=== PATIENT | female | born 1970 ===

== ENCOUNTER 2023-05-18 12:34 | Emergency (ER) | payer OTHER, SELFPAY ==
--- NOTE | ~2023-05-18 | CT_ITS ---
EXAMINATION: CT ANGIOGRAM NECK WITH CONTRAST CT ANGIOGRAM BRAIN WITH CONTRAST CLINICAL INFORMATION: Left-sided weakness. COMPARISON: None. TECHNIQUE: Test bolus sequences followed by intravenous administration 100 mL of Omnipaque 350. Helical imaging was performed in the axial plane from the thoracic inlet to the skull vertex. Delayed postcontrast imaging of the head was also performed. The data was processed at the medical laboratory technologist workstation for generation of MIP sequences. Angled MIPs and volume rendered reformatted images were also generated at an offline 3D workstation. Stenoses are assessed in accordance with NASCET criteria unless otherwise indicated. This CT examination was performed using dose optimization techniques as appropriate, variously including the following: *Automated exposure control *Adjustment of mA and/or kV according to patient size (this includes techniques or standardized protocols for targeted exams where dose is matched to indication/reason for exam; i.e. extremities or head) *Use of iterative reconstruction technique DLP: 6 mGy-cm FINDINGS: Head CT: There is no intracranial hemorrhage, large acute infarction, or mass lesion. The ventricles are normal in size and configuration without evidence of hydrocephalus. There is no abnormal enhancement. The dural venous sinuses are normally opacified. The visualized paranasal sinuses and mastoid air cells are clear. Neck CTA: There is a normal aortic arch with no significant stenosis of the great vessel origins. The common and internal carotid arteries are normal in course and caliber. Both vertebral arteries are widely patent throughout their extracranial cervical course. Head CTA: No intracranial aneurysm is seen. The intracranial internal carotid arteries appear normal. The anterior cerebral artery, anterior communicating artery, and middle cerebral arteries appear normal. The intradural vertebral arteries and basilar artery appear normal. The posterior cerebral arteries appear normal. Non-vascular findings: The cervical soft tissues are within normal limits. The lung apices are clear. The spine is intact without significant degenerative change. CT/CT angio head neck IMPRESSION: CT HEAD: No intracranial hemorrhage or large acute infarction. CTA NECK: No hemodynamically significant stenosis in the major arteries of the neck. CTA HEAD: No large vessel occlusion or significant stenosis within the intracranial circulation. This critical result was discussed with Faby MUSTAFA on 05/18/2023 3:15 PM, and it was ascertained that the content and urgency of the report was understood at the time of direct communication.
--- NOTE | 2023-05-18 12:36 | ECG_ITS ---
Test Reason : CHEST PAIN Blood Pressure : / mmHG Vent. Rate : 081 BPM Atrial Rate : 081 BPM P-R Int : 152 ms QRS Dur : 074 ms QT Int : 380 ms P-R-T Axes : 061 040 016 degrees QTc Int : 441 ms Normal sinus rhythm Nonspecific ST and T wave abnormality Borderline ECG No previous ECGs available Referred By: Generic ED Physician Electronically Signed By:MAXINE AQUINO
[2023-05-18 12:42] VITALS: BP 133/83; PULSE 93; RESP 16; TEMP 36.1; O2SAT 100; BMI 20.1
--- NOTE | 2023-05-18 12:45 | ED_ITS ---
HPI - General Adult General Chief complaint: General Medical Stated complaint: headache, chest pain Time Seen by Provider: 05/18/23 13:05 Source: patient and family Mode of arrival: ambulatory Limitations: no limitations History of Present Illness HPI narrative: 52 y/o female with history of migraine headaches, HTN, history of TIA who presents to the ER for evaluation of a migraine head that started yesterday. She states the headache is 10/10 and she had no improvement with taking her usual Topamax and PRN Fiorcet at homes so she came to the ER for further evaluation. She reports the headache is generalized and involves her entire head. It is associated with nausea. She also reports generalized fatigue, chest discomfort across her entire chest, body aches, and increased urinary frequency for the last 2 days. No abdominal pain, vomiting or diarrhea. No SOB or difficulty breathing. Patient ambulated to the treatment room and upon examination patient reported new onset of left side of her body feeling heavy that started in the hour wait she was in the waiting room. She reports weakness in her left arm and leg. No numbness or tingling. Her daughter reports a similar presentation in the past for which she was admitted to [facility] for possible TIA. She has been on Plavix for this for the last couple of years. She is unsure if head imaging showed any abnormalities in the past. MD complaint: migraine headache Onset (ago): day(s) (1) Location: head, face, left, upper extremity and lower extremity Severity: severe Severity scale (1-10): 10 Quality: stabbing and aching Pain Consistency: constant Relieving factors: none Exacerbating factors: none Associated symptoms: malaise and weakness Treatments prior to arrival: other (fiorcet) Related Data Allergies Allergy/AdvReac Type Severity Reaction Status Date / Time aspirin [ASA] Allergy Unknown Verified 05/18/23 12:48 Review of Systems Review of Systems: Yes all other systems are reviewed and are negative PMFSH Social History Social History Advance Directives: Yes Advance Directives on File: No Physical Exam ED Vital Signs: Vital Signs - 24 hr 05/18/23 12:42 05/18/23 13:56 05/18/23 15:15 Temperature 96.9 F 98 F 98.9 F Pulse Rate 93 85 85 Respiratory Rate 16 17 8 L Blood Pressure 133/83 113/70 111/71 Pulse Oximetry 100 100 100 Oxygen Delivery Method Room Air Room Air BMI result Body Mass Index 20.1 Appearance: Alert. Oriented X3. No acute distress. Head: normocephalic, atraumatic. Eyes: Pupils equal, round and reactive to light. ENT: Pharynx normal. No tonsillar swelling or exudate. Neck: Normal inspection. Neck supple. CVS: Normal heart rate and rhythm. Pulses normal. Respiratory: No respiratory distress. Breath sounds normal. Abdomen: Soft and nontender. +BS x4 Skin: Skin warm and dry. Normal skin color. Normal skin turgor. No rashes. Extremities: No lower extremity edema. No joint swelling. Neuro/psych: Oriented X 3. There is 4/5 strength of both the LUE and LLL. 5/5 strength of the RUE and RLE. No sensory deficit. CN II-XII intact. Normal speech and cognition. No facial droop. No pronator drift. Steady gait observed. NIH Stroke Scale Internal: Initial- Upon Arrival Time: 13:23 Level of Consciousness: Alert Level of Consciousness Questions: Answers both questions correctly Level of Consciousness Commands: Performs both tasks correctly Best Gaze: Normal Visual: No visual loss Facial Palsy: Normal Motor Arm (Right): No drift Motor Arm (Left): Some effort against gravity Motor Leg (Right): No drift Motor Leg (Left): Some effort against gravity Limb Ataxia: Absent Sensory: Normal Best Language: No aphasia Dysarthia: Normal Extinction and Inattention: No abnormality Score: 4 Course Course Course Narrative: This is an RME: Additional HPI, ROS, PE not included below will be deferred to primary provider. 52-year-old female history of migraines presenting with multiple complaints including headache, chest pain, fatigue, malaise, urinary frequency and urgency for the past 2 days. Patient has history of migraines tells me it feels similar took some medication for at home with little to no relief, does not recall what she took. Pain > 10/10 Physical exam benign. Neuro nonfocal. Ambulating with steady gait normal coordination. Plan labs, imaging, urine. Reevaluation(s) Reevaluation #1: Spoke with Dr. Anderson from Neurology about the case - he is recommending treating the migraine headache. She is already on Plavix. She is not a candidate for tPA. Her symptoms are most consistent with complex migraine. Case also c/w Dr. Garcia who evaluated the patient - recommend treatment for complex migraine. Getting CTA to r/o LVO Time: 13:48 Medications Administered Discontinued Medications Generic Name Dose Route Start Last Admin Trade Name Titi PRN Reason Stop Dose Admin Dexamethasone Sodium Phosphate 8 mg 05/18/23 13:38 05/18/23 13:52 Dexamethasone Sod Phosphate 4 Mg/Ml Vial IVPUSH 05/18/23 13:39 8 mg ONCE ONE Administration Magnesium Sulfate 2 gm in 50 mls @ 25 mls/hr 05/18/23 13:39 05/18/23 14:17 Magnesium Sulfate/H2o IV 05/18/23 15:38 Infused ONCE ONE Infusion Iohexol 100 ml 05/18/23 14:24 05/18/23 14:24 Iohexol 350 Mg/Ml 100 Ml Infus..Btl IV 05/18/23 14:25 70 ml ONCE ONE Administration Medical Decision Making Medical Decision Making MDM Narrative: 52 yo female with history of migraine headaches, ?TIA on Plavix, HTN who presents to the ER for evaluation of 10/10 migraine headache since yesterday along with new onset left sided weakness that started within the last hour. Case d/w Dr. Anderson who recommends treating migraine headache. Records from [facility] were reviewed - she presented to [facility] in December of this year with very similar presentation including the left sided weakness which was most likely due to complex migraine and NOT TIA. Case d/w Dr. Garcia - patient was treated with Mg++ 2gm, and 8 mg IV decadron with significant improvement in her symptoms. CTA head/neck normal. Comfortable w/ discharge home with close follow up with her Neurologist. Differential Diagnosis Differential Diagnoses: The differential diagnosis associated with the presentation includes complex migraine headache, acute stroke, TIA, malingering Admission/Observation Consideration of admission/observation: Escalation of care including admission/observation considered possible TIA, considered admission Consult Healthcare Provider Management of the patient was discussed with: Electroencephalograph Technologist Dr. Anderson Lab Data [facility] Lab Attestation statement: I reviewed the patient's lab results. normal CBC 05/18/23 13:40 05/18/23 13:40 Labs: Lab Results 05/18/23 05/18/23 05/18/23 Range/Units 13:30 13:32 13:39 WBC (4.8-10.8) X10*3/uL RBC (4.20-5.50) X10*6/uL Hgb (12.0-16.0) g/dl Hct (37.0-47.0) % MCV (80.0-98.0) fL MCH (27.0-33.0) pg MCHC (31.0-35.0) g/dl RDW (11.0-16.0) % Plt Count (160-400) X10*3/uL MPV (9.4-12.3) fL Immature Gran % (Auto) (0.0-0.4) % Neut % (Auto) (45-73) % Lymph % (Auto) (20-40) % Gates % (Auto) (2-11) % Eos % (Auto) (0-4) % Baso % (Auto) (0-2) % Lymph # (Auto) (1.2-4.9) X10*3/uL Gates # (Auto) (0.1-1.2) X10*3/uL Eos # (Auto) (0.0-0.4) X10*3/uL Baso # (Auto) (0.0-0.2) X10*3/uL Abs Immat Gran (auto) (0.00-0.03) X10*3/uL Absolute Neuts (auto) (2.0-8.3) x10*3/uL Absolute Nucleated RBC (0.0-0.012) X10*3/uL Nucleated RBC % (auto) (0.0-0.2) /100WBC Smear Tech's Comments PT 11.5 (10.0-13.1) SEC Whole Blood PT 12.4 (11.1-13.5) sec INR 1.0 (0.9-1.1) Whole Blood INR 1.0 (0.9-1.1) APTT 32.6 (26.0-36.4) SEC Sodium (135-145) mmol/L Potassium (3.3-5.1) mmol/L Chloride (96-108) mmol/L Carbon Dioxide (22-29) mmol/L Anion Gap (12-20) BUN (9-16) mg/dL Creatinine (0.5-1.4) mg/dL Estim Creat Clear Calc Estimated GFR POC Glucose 93 (60-115) mg/dL Random Glucose (60-115) mg/dL Calcium (8.4-10.2) mg/dL Magnesium (1.6-2.6) mg/dL Total Bilirubin (0.0-1.0) mg/dL AST (5-31) U/L ALT (0-31) U/L Alkaline Phosphatase (39-117) U/L Troponin I High Sens (<3.5-17.0) ng/L Total Protein (6.5-8.0) g/dL Albumin (3.5-5.0) g/dL COVID-19 (AMY) (Negative) COVID-19 Clin Com 05/18/23 05/18/23 05/18/23 Range/Units 13:40 13:40 13:40 WBC 6.8 (4.8-10.8) X10*3/uL RBC 4.28 (4.20-5.50) X10*6/uL Hgb 13.5 (12.0-16.0) g/dl Hct 42.1 (37.0-47.0) % MCV 98.4 H (80.0-98.0) fL MCH 31.5 (27.0-33.0) pg MCHC 32.1 (31.0-35.0) g/dl RDW 11.8 (11.0-16.0) % Plt Count 212 (160-400) X10*3/uL MPV 11.1 (9.4-12.3) fL Immature Gran % (Auto) 0.4 (0.0-0.4) % Neut % (Auto) 90.4 H (45-73) % Lymph % (Auto) 5.9 L (20-40) % Gates % (Auto) 2.8 (2-11) % Eos % (Auto) 0.1 (0-4) % Baso % (Auto) 0.4 (0-2) % Lymph # (Auto) 0.4 L (1.2-4.9) X10*3/uL Gates # (Auto) 0.2 (0.1-1.2) X10*3/uL Eos # (Auto) 0.0 (0.0-0.4) X10*3/uL Baso # (Auto) 0.0 (0.0-0.2) X10*3/uL Abs Immat Gran (auto) 0.03 (0.00-0.03) X10*3/uL Absolute Neuts (auto) 6.2 (2.0-8.3) x10*3/uL Absolute Nucleated RBC 0.000 (0.0-0.012) X10*3/uL Nucleated RBC % (auto) 0.0 (0.0-0.2) /100WBC Smear Tech's Comments VERIFIED PT (10.0-13.1) SEC Whole Blood PT (11.1-13.5) sec INR (0.9-1.1) Whole Blood INR (0.9-1.1) APTT (26.0-36.4) SEC Sodium 142 (135-145) mmol/L Potassium 4.2 (3.3-5.1) mmol/L Chloride 113 H (96-108) mmol/L Carbon Dioxide 20 L (22-29) mmol/L Anion Gap 13 (12-20) BUN 13 (9-16) mg/dL Creatinine 0.92 (0.5-1.4) mg/dL Estim Creat Clear Calc 55.0 Estimated GFR > 60 POC Glucose (60-115) mg/dL Random Glucose 106 (60-115) mg/dL Calcium 10.0 (8.4-10.2) mg/dL Magnesium 2.2 (1.6-2.6) mg/dL Total Bilirubin 0.7 (0.0-1.0) mg/dL AST 21 (5-31) U/L ALT 20 (0-31) U/L Alkaline Phosphatase 79 (39-117) U/L Troponin I High Sens < 2.7 (<3.5-17.0) ng/L Total Protein 7.3 (6.5-8.0) g/dL Albumin 4.6 (3.5-5.0) g/dL COVID-19 (AMY) (Negative) COVID-19 Clin Com 05/18/23 Range/Units 13:40 WBC (4.8-10.8) X10*3/uL RBC (4.20-5.50) X10*6/uL Hgb (12.0-16.0) g/dl Hct (37.0-47.0) % MCV (80.0-98.0) fL MCH (27.0-33.0) pg MCHC (31.0-35.0) g/dl RDW (11.0-16.0) % Plt Count (160-400) X10*3/uL MPV (9.4-12.3) fL Immature Gran % (Auto) (0.0-0.4) % Neut % (Auto) (45-73) % Lymph % (Auto) (20-40) % Gates % (Auto) (2-11) % Eos % (Auto) (0-4) % Baso % (Auto) (0-2) % Lymph # (Auto) (1.2-4.9) X10*3/uL Gates # (Auto) (0.1-1.2) X10*3/uL Eos # (Auto) (0.0-0.4) X10*3/uL Baso # (Auto) (0.0-0.2) X10*3/uL Abs Immat Gran (auto) (0.00-0.03) X10*3/uL Absolute Neuts (auto) (2.0-8.3) x10*3/uL Absolute Nucleated RBC (0.0-0.012) X10*3/uL Nucleated RBC % (auto) (0.0-0.2) /100WBC Smear Tech's Comments PT (10.0-13.1) SEC Whole Blood PT (11.1-13.5) sec INR (0.9-1.1) Whole Blood INR (0.9-1.1) APTT (26.0-36.4) SEC Sodium (135-145) mmol/L Potassium (3.3-5.1) mmol/L Chloride (96-108) mmol/L Carbon Dioxide (22-29) mmol/L Anion Gap (12-20) BUN (9-16) mg/dL Creatinine (0.5-1.4) mg/dL Estim Creat Clear Calc Estimated GFR POC Glucose (60-115) mg/dL Random Glucose (60-115) mg/dL Calcium (8.4-10.2) mg/dL Magnesium (1.6-2.6) mg/dL Total Bilirubin (0.0-1.0) mg/dL AST (5-31) U/L ALT (0-31) U/L Alkaline Phosphatase (39-117) U/L Troponin I High Sens (<3.5-17.0) ng/L Total Protein (6.5-8.0) g/dL Albumin (3.5-5.0) g/dL COVID-19 (AMY) Negative (Negative) COVID-19 Clin Com See Note Independent Interpretation I performed an independent interpretation of an: EKG and CT Scan Interpretation: CTA reviewed - no significant bleed or occlusion appreciated EKG normal sinus rhythm, HR 81 bpm, normal MS interval, normal QTc Radiology Impression Discussion of test interpretation with radiology: I have reviewed the radiologist's reading. Radiologist Impression: CT/CT angio head neck IMPRESSION: CT HEAD: No intracranial hemorrhage or large acute infarction. ? CTA NECK: No hemodynamically significant stenosis in the major arteries of the neck. ? CTA HEAD: No large vessel occlusion or significant stenosis within the intracranial circulatio Independent Historian Clinical information obtained from an independent historian. History obtained from or confirmed by: Other (adult daughter at the bedside) External Record Review External record reviewed: Inpatient record and Outside ED record Prescription Management I considered prescription management with: Pain Medication Chronic Conditions Patient?s care impacted by: Hypertension Critical Care Time Critical Care Time Critical Care Time: Yes Total Critical Care Time: 44 Attestation: I have personally provided critical care time exclusive of time spent on separately billable procedures. Time includes review of lab data, radiology results, discussion with consultants, and monitoring for potential decompensation. Intervention performed as documented. Discharge Plan Discharge Clinical Impression: Migraine headache Patient Disposition: Home, Self-Care Instructions: Migraine Headache (ED) Additional Instructions: Your CT scan today was normal. Your EKG was normal. Your urine test was normal. Your lab work was unremarkable. You tested negative for COVID. Follow up with your doctor If you develop new or worsening symptoms call 911 or come back to the ER for further evaluation. Paulino tomograf?a computarizada de hoy fue normal. Paulino electrocardiograma fue normal. Paulino an?lisis de orina fue normal. Paulino trabajo de laboratorio fue normal. Usted elías negativo para COVID. Seguimiento con paulino m?dico Si desarrolla s?ntomas nuevos o que empeoran, llame al 911 o regrese a la lucille de emergencias para joana evaluaci?n adicional.
[2023-05-18 13:39] LABS: Glucose, Whole Blood 93 mg/dL (60-115)
--- NOTE | 2023-05-18 13:44 | PC.NURSE ---
pt reports migraine with sudden onset weakness, neuro intact, 20G IV placed right AC, labs drawn, stroke protocol completed by tech, playground monitor applied - NSR, CT pending lab results.
[2023-05-18 13:46] LABS: Basophils Percent Auto 0.4 % (0-2); Eosinophils Percent Auto 0.1 % (0-4); Hematocrit 42.1 % (37.0-47.0); Hemoglobin 13.5 g/dl (12.0-16.0); Imm Gran Abs Auto 0.03 X10*3/uL (0.00-0.03); Imm Gran Pct Auto 0.4 % (0.0-0.4); Lymphocytes Absolute Auto 0.4 X10*3/uL (1.2-4.9); Lymphocytes Percent Auto 5.9 % (20-40); MANUAL DIFF FLAG SCAN; Mean Corpuscular HGB Conc 32.1 g/dl (31.0-35.0); Mean Corpuscular Hemoglobin 31.5 pg (27.0-33.0); Mean Corpuscular Volume 98.4 fL (80.0-98.0); Mean Platelet Volume 11.1 fL (9.4-12.3); Monocytes Absolute Auto 0.2 X10*3/uL (0.1-1.2); Monocytes Percent Auto 2.8 % (2-11); Neutrophils Absolute Auto 6.2 x10*3/uL (2.0-8.3); Neutrophils Percent Auto 90.4 % (45-73); Platelet Count 212 X10*3/uL (160-400); Red Blood Count 4.28 X10*6/uL (4.20-5.50); Red Cell Distribution Width 11.8 % (11.0-16.0); SCAN SMEAR FLAG 1; White Blood Count 6.8 X10*3/uL (4.8-10.8)
[2023-05-18] MEDS: Magnesium Sulfate/H2O 2 GM/50 ML PIGGYBACK IV (13:51)
[2023-05-18 13:52] LABS: Prothrombin Time 11.5 SEC (10.0-13.1)
[2023-05-18] MEDS: dexAMETHasone sod phosphate 4 MG/ML VIAL 8 MG IVPUSH (13:52)
[2023-05-18 13:55] LABS: Partial Thromboplastin Time 32.6 SEC (26.0-36.4)
[2023-05-18 13:56] VITALS: BP 113/70; PULSE 85; RESP 17; TEMP 36.6; O2SAT 100
[2023-05-18 13:59] LABS: COVID-19 Test Negative (Negative); IDNOW Serial# 16C4AD1C
[2023-05-18 14:07] LABS: Alanine Aminotransferase 20 U/L (0-31); Albumin Level 4.6 g/dL (3.5-5.0); Alkaline Phosphatase 79 U/L (39-117); Anion Gap 13 (12-20); Aspartate Amino Transferase 21 U/L (5-31); Bilirubin Total 0.7 mg/dL (0.0-1.0); Blood Urea Nitrogen 13 mg/dL (9-16); Carbon Dioxide 20 mmol/L (22-29); Chloride 113 mmol/L (96-108); Estimated Glomerular Filt Rate > 60; Glucose Random 106 mg/dL (60-115); Magnesium 2.2 mg/dL (1.6-2.6); Potassium 4.2 mmol/L (3.3-5.1); Sodium 142 mmol/L (135-145); Total Protein 7.3 g/dL (6.5-8.0)
[2023-05-18 14:13] LABS: Troponin-I High Sensitivity < 2.7 ng/L (<3.5-17.0)
[2023-05-18 14:18] LABS: SLIDE REVIEW VERIFIED
[2023-05-18] MEDS: iohexoL 350 MG/ML 100 ML INFUS..BTL IV (14:24)
[2023-05-18 14:45] LABS: Prothrombin Time Whole Bld POC 12.4 sec (11.1-13.5)
[2023-05-18 15:15] VITALS: BP 111/71; PULSE 85; RESP 8; TEMP 37.2; O2SAT 100
[2023-05-18 15:53] LABS: Appearance Urine Clear; Color Urine Yellow; Glucose Urine UA Negative (Negative); Leukocyte Esterase Urine Negative (Negative); Nitrite Urine Negative (Negative); Specific Gravity - Urine >= 1.030 (1.005-1.025); Urine Blood Negative (Negative); Urine Ketones 15 mg/dL (Negative); Urine Protein Negative (Neg-Trace)
[2023-05-18 15:55] LABS: UPreg QC Valid YES; Urine Pregnancy NEGATIVE (NEGATIVE)
== END 2023-05-18 16:15 | disposition home or self-care (01) ==
PROVIDERS: Physician Assistant; Emergency Provider Student in an Organized Health Care Education/Training Program
DX: G43.909 Migraine, unspecified, not intractable, without status migrainosus (principal); Z20.822 Contact with and (suspected) exposure to COVID-19; Z79.899 Other long term (current) drug therapy
CPT/HCPCS: 36415; 70496; 70498; 80053; 81003; 81025; 82947; 83735; 84484; 85025; 85610; 85730; 87635; 93005; 96365; 96375; 99284; J1100; J3475; Q9967

== ENCOUNTER 2024-12-04 12:54 | Emergency (ER) | payer OTHER, SELFPAY ==
--- NOTE | 2024-12-04 12:57 | ECG_ITS ---
Test Reason : CP Blood Pressure : / mmHG Vent. Rate : 087 BPM Atrial Rate : 087 BPM P-R Int : 152 ms QRS Dur : 078 ms QT Int : 364 ms P-R-T Axes : 066 049 037 degrees QTc Int : 438 ms Normal sinus rhythm Normal ECG When compared with ECG of 18-MAY-2023 12:39, No significant change was found Referred By: Sujatha Pak Electronically Signed By:MARIPOSA DALTON MD
[2024-12-04 13:16] VITALS: BP 119/69; PULSE 99; RESP 18; TEMP 36.6; O2SAT 100; BMI 18.8
--- NOTE | 2024-12-04 13:16 | ED.ABDPAIN ---
HPI - Abdominal Pain General Chief Complaint: Abdominal Pain Stated Complaint: abd and chest pain Time Seen by Provider: 12/04/24 16:01 Source: patient, family, RN notes reviewed, old records reviewed and other (Records from [facility] dated 12/03/2024) Mode of arrival: ambulatory Limitations: language barrier History of Present Illness ED Provider: Gracia RAMIREZ narrative: 54-year-old female with past medical history significant for GERD, hypertension, hyperlipidemia presents for evaluation of abdominal pain and left-sided chest pain. Her symptoms started 2 days ago. She reports feeling a lump above her umbilicus. She also has left-sided chest wall pain. Her pain is worse with the breathing The patient went to [facility] yesterday. She had a broad workup that included labs, EKG, CT scan of the abdomen pelvis. All of which was unremarkable and the patient was ultimately discharged home The patient presents today for continued pain She rates her pain as 10/10 Denies any nausea, vomiting, diarrhea, urinary complaints. Related Data Previous Rx's ?Medication ?Instructions ?Recorded cephalexin 500 mg capsule 500 mg PO QID #28 caps 12/04/24 Allergies Allergy/AdvReac Type Severity Reaction Status Date / Time aspirin [ASA] Allergy Unknown Verified 12/04/24 13:18 Review of Systems Constitutional: Denies body ache(s), Denies chills, Denies fever(s) and Denies headache(s) Eyes: Denies blurry vision and Denies dry eyes Denies headache(s) Cardiovascular: Reports chest pain and Denies dyspnea Respiratory: Denies cough, Reports pain on inspiration and Denies dyspnea Gastrointestinal: Reports abdominal pain Musculoskeletal: Denies back pain Skin/Breast: Denies rash Denies headache(s) Psychiatric: Denies anxiety PMFSH Social History Social History Smoked in Last 30 Days: No Use of substances other than those prescribed or required for medical reasons: No Advance Directives: No Advance Directives Information Provided: No Patient : No Physical Exam ED Vital Signs: Vital Signs - 24 hr 12/04/24 13:16 12/04/24 15:28 12/04/24 18:25 Temperature 97.9 F 98.1 F 97.8 F Pulse Rate 99 75 72 Respiratory Rate 18 20 12 Blood Pressure 119/69 115/69 99/69 Pulse Oximetry 100 100 100 Oxygen Delivery Method Room Air Room Air Room Air BMI result Body Mass Index 18.8 Const General: healthy appearing, comfortable, no acute distress, alert and awake Nutritional Appearance: well nourished Orientation/consciousness: patient oriented x3 HENMT Head: Yes normocephalic and Yes atraumatic Eyes Eyelids: Yes eyelids normal Conjunctivae: conjunctivae normal Sclerae: sclerae normal Corneas: corneas normal Pupils: Equal, round and reactive pupils present EOM: EOMs intact bilaterally Neck Neck: Yes full ROM Resp Effort & Inspection: normal respiratory effort, able to speak in complete sentences and not labored Cardio Rate: regular rate Rhythm: regular rhythm GI Other: Patient has mild erythema within the umbilicus, there is no purulent drainage. This area is tender to palpation. No palpable masses or lesions Inspection: No distended Palpation (GI): Soft to palpation, not firm, Tenderness to palpation present (GI) periumbilically; not in the LLQ, not in the RLQ, not in the LUQ, not in the RUQ and not at McBurney's point, no guarding and not rigid Skin General skin exam: elasticity normal Neuro General: patient oriented x3 Cranial nerves: Yes CN's II-XII intact bilaterally, Yes Equal, round and reactive pupils present and Yes Bilaterally intact EOM present Cognition (Neuro): normal cognition Extrem Other: Moving all extremities well without any obvious deformities Course Course Course Narrative: This is a Rapid Medical Exam performed in triage by Sujatha Pak PA-C. Full HPI, ROS and PE to be performed by primary ED provider. 54yo F presenting to the ED c/o intermittent left sided chest pain & periumbilical abdominal pain w/lump. Was evaluated at [facility] yesterday and they didn't find anything. PE: + mild umbilical erythema noted. ? palpable Periumbilical hernia w/ttp. no rebound or guarding Plan: labs, UA Reevaluation(s) Reevaluation #1: The patient's lactate improved with IV fluids. We will discharge the patient with cephalexin for a mild periumbilical cellulitis. Time: 20:39 Medical Decision Making Medical Decision Making MDM Narrative: 54-year-old female with past medical history as documented above presents for evaluation of abdominal pain and chest pain. I reviewed her workup from [facility] yesterday that was extensive. She had a CT scan, labs, EKG. Her labs are repeated today which were significant for a lactic acid of 2.6. Unclear exactly what this is from. The patient is not on metformin. This does not appear consistent with ischemic bowel as the patient has had pain for 2 days I would suspect a much higher lactic acidosis if this were the case. I do not see any indication to repeat imaging at this time. The patient appears quite well, vital signs are stable. She has no leukocytosis. Chemistries are within normal limits. Plan to treat with IV fluids and repeat lactic acid. Differential Diagnosis Differential Diagnoses: The differential diagnosis associated with the presentation includes Umbilical cellulitis Abdominal pain Constipation Pancreatitis GERD Bowel obstruction less likely Ischemic bowel less likely Chest pain ACS less likely Lab Data MDM Lab Attestation statement: I reviewed the patient's lab results. As above 12/04/24 13:36 12/04/24 13:36 Labs: Lab Results 12/04/24 12/04/24 12/04/24 Range/Units 13:36 13:37 15:55 WBC 4.4 L (4.8-10.8) X10*3/uL RBC 4.53 (4.20-5.50) X10*6/uL Hgb 14.0 (12.0-16.0) g/dl Hct 43.5 (37.0-47.0) % MCV 96.0 (80.0-98.0) fL MCH 30.9 (27.0-33.0) pg MCHC 32.2 (31.0-35.0) g/dl RDW 11.9 (11.0-16.0) % Plt Count 230 (160-400) X10*3/uL MPV 10.9 (9.4-12.3) fL Immature Gran % (Auto) 0.2 (0.0-0.4) % Neut % (Auto) 78.4 H (45-73) % Lymph % (Auto) 14.2 L (20-40) % [place] % (Auto) 6.3 (2-11) % Eos % (Auto) 0.2 (0-4) % Baso % (Auto) 0.7 (0-2) % Lymph # (Auto) 0.6 L (1.2-4.9) X10*3/uL [place] # (Auto) 0.3 (0.1-1.2) X10*3/uL Eos # (Auto) 0.0 (0.0-0.4) X10*3/uL Baso # (Auto) 0.0 (0.0-0.2) X10*3/uL Abs Immat Gran (auto) 0.01 (0.00-0.03) X10*3/uL Absolute Neuts (auto) 3.5 (2.0-8.3) x10*3/uL Absolute Nucleated RBC 0.000 (0.0-0.012) X10*3/uL Nucleated RBC % (auto) 0.0 (0.0-0.2) /100WBC PT 11.9 (10.9-12.4) SEC INR 1.0 (0.9-1.1) Sodium 144 (135-145) mmol/L Potassium 4.0 (3.3-5.1) mmol/L Chloride 114 H (96-108) mmol/L Carbon Dioxide 22 (22-29) mmol/L Anion Gap 12 (12-20) BUN 10 (9-16) mg/dL Creatinine 0.86 (0.5-1.4) mg/dL Estim Creat Clear Calc 55.4 Estimated GFR > 60 Random Glucose 97 (60-115) mg/dL Lactic Acid 2.6 H* (0.5-2.0) mmol/L Lactic Acid F/U @ 2Hr 2.6 H* (0.5-2.0) mmol/L Lactic Acid F/U @ 4Hr (0.5-2.0) mmol/L Calcium 9.5 (8.4-10.2) mg/dL Magnesium 2.3 (1.6-2.6) mg/dL Total Bilirubin 0.4 (0.0-1.0) mg/dL Direct Bilirubin 0.2 (0.0-0.5) mg/dL AST 27 (5-31) U/L ALT 23 (0-31) U/L Alkaline Phosphatase 86 (39-117) U/L Troponin I High Sens < 2.7 (<3.5-17.0) ng/L Total Protein 7.4 (6.5-8.0) g/dL Albumin 4.7 (3.5-5.0) g/dL Lipase 56 (8-78) U/L Urine Color Yellow Urine Appearance Clear Urine pH 6.5 (5.0-9.0) Ur Specific Mason 1.015 (1.005-1.025) Urine Protein Negative (Neg-Trace) mg/dL Urine Glucose (UA) Negative (Negative) mg/dL Urine Ketones Negative (Negative) mg/dL Urine Blood Negative (Negative) Urine Nitrite Negative (Negative) Ur Leukocyte Esterase Negative (Negative) 12/04/24 Range/Units 19:40 WBC (4.8-10.8) X10*3/uL RBC (4.20-5.50) X10*6/uL Hgb (12.0-16.0) g/dl Hct (37.0-47.0) % MCV (80.0-98.0) fL MCH (27.0-33.0) pg MCHC (31.0-35.0) g/dl RDW (11.0-16.0) % Plt Count (160-400) X10*3/uL MPV (9.4-12.3) fL Immature Gran % (Auto) (0.0-0.4) % Neut % (Auto) (45-73) % Lymph % (Auto) (20-40) % [place] % (Auto) (2-11) % Eos % (Auto) (0-4) % Baso % (Auto) (0-2) % Lymph # (Auto) (1.2-4.9) X10*3/uL [place] # (Auto) (0.1-1.2) X10*3/uL Eos # (Auto) (0.0-0.4) X10*3/uL Baso # (Auto) (0.0-0.2) X10*3/uL Abs Immat Gran (auto) (0.00-0.03) X10*3/uL Absolute Neuts (auto) (2.0-8.3) x10*3/uL Absolute Nucleated RBC (0.0-0.012) X10*3/uL Nucleated RBC % (auto) (0.0-0.2) /100WBC PT (10.9-12.4) SEC INR (0.9-1.1) Sodium (135-145) mmol/L Potassium (3.3-5.1) mmol/L Chloride (96-108) mmol/L Carbon Dioxide (22-29) mmol/L Anion Gap (12-20) BUN (9-16) mg/dL Creatinine (0.5-1.4) mg/dL Estim Creat Clear Calc Estimated GFR Random Glucose (60-115) mg/dL Lactic Acid (0.5-2.0) mmol/L Lactic Acid F/U @ 2Hr (0.5-2.0) mmol/L Lactic Acid F/U @ 4Hr 1.8 (0.5-2.0) mmol/L Calcium (8.4-10.2) mg/dL Magnesium (1.6-2.6) mg/dL Total Bilirubin (0.0-1.0) mg/dL Direct Bilirubin (0.0-0.5) mg/dL AST (5-31) U/L ALT (0-31) U/L Alkaline Phosphatase (39-117) U/L Troponin I High Sens (<3.5-17.0) ng/L Total Protein (6.5-8.0) g/dL Albumin (3.5-5.0) g/dL Lipase (8-78) U/L Urine Color Urine Appearance Urine pH (5.0-9.0) Ur Specific Mason (1.005-1.025) Urine Protein (Neg-Trace) mg/dL Urine Glucose (UA) (Negative) mg/dL Urine Ketones (Negative) mg/dL Urine Blood (Negative) Urine Nitrite (Negative) Ur Leukocyte Esterase (Negative) Independent Interpretation I performed an independent interpretation of an: EKG (Normal sinus rhythm with a rate of [address] segment elevations or depressions.) Medications Administered Discontinued Medications Generic Name Dose Route Start Last Admin Trade Name Freq PRN Reason Stop Dose Admin Sodium Chloride 1,000 mls @ 999 mls/hr 12/04/24 17:15 12/04/24 19:20 Ns IV 12/04/24 18:15 Infused .Q1H1M AMOL Infusion Ketorolac Tromethamine 15 mg 12/04/24 17:12 12/04/24 17:27 Ketorolac Tromethamine 15 Mg/Ml Vial IVPUSH 12/04/24 17:13 15 mg ONCE ONE Administration Discharge Plan Discharge Clinical Impression: Abdominal pain, Cellulitis Patient Disposition: Home, Self-Care Instructions: Cellulitis (ED), Abdominal Pain (ED) Additional Instructions: Your workup in the ER today was reassuring. You may have a mild skin infection around your belly button. Take cephalexin 4 times daily for the next 7 days Keep the area clean and dry Follow-up with your primary doctor, return for new or worsening symptoms Prescriptions: New cephalexin 500 mg capsule 500 mg PO QID Qty: 28 0RF Print Language: Welsh
[2024-12-04 13:42] LABS: MANUAL DIFF FLAG NO
[2024-12-04 13:45] LABS: Appearance Urine Clear; Color Urine Yellow; Glucose Urine UA Negative (Negative); Leukocyte Esterase Urine Negative (Negative); Nitrite Urine Negative (Negative); PH 6.5 (5.0-9.0); Specific Gravity - Urine 1.015 (1.005-1.025); Urine Blood Negative (Negative); Urine Ketones Negative (Negative); Urine Protein Negative (Neg-Trace)
[2024-12-04 13:49] LABS: Prothrombin Time 11.9 SEC (10.9-12.4)
[2024-12-04 13:50] LABS: Basophils Percent Auto 0.7 % (0-2); Eosinophils Percent Auto 0.2 % (0-4); Hematocrit 43.5 % (37.0-47.0); Imm Gran Abs Auto 0.01 X10*3/uL (0.00-0.03); Imm Gran Pct Auto 0.2 % (0.0-0.4); Lymphocytes Absolute Auto 0.6 X10*3/uL (1.2-4.9); Lymphocytes Percent Auto 14.2 % (20-40); Mean Corpuscular HGB Conc 32.2 g/dl (31.0-35.0); Mean Corpuscular Hemoglobin 30.9 pg (27.0-33.0); Mean Platelet Volume 10.9 fL (9.4-12.3); Monocytes Absolute Auto 0.3 X10*3/uL (0.1-1.2); Monocytes Percent Auto 6.3 % (2-11); Neutrophils Absolute Auto 3.5 x10*3/uL (2.0-8.3); Neutrophils Percent Auto 78.4 % (45-73); Platelet Count 230 X10*3/uL (160-400); Red Blood Count 4.53 X10*6/uL (4.20-5.50); Red Cell Distribution Width 11.9 % (11.0-16.0); White Blood Count 4.4 X10*3/uL (4.8-10.8)
[2024-12-04 13:58] LABS: Alanine Aminotransferase 23 U/L (0-31); Albumin Level 4.7 g/dL (3.5-5.0); Alkaline Phosphatase 86 U/L (39-117); Anion Gap 12 (12-20); Aspartate Amino Transferase 27 U/L (5-31); Bilirubin Direct 0.2 mg/dL (0.0-0.5); Bilirubin Total 0.4 mg/dL (0.0-1.0); Blood Urea Nitrogen 10 mg/dL (9-16); Calcium 9.5 mg/dL (8.4-10.2); Carbon Dioxide 22 mmol/L (22-29); Chloride 114 mmol/L (96-108); Creatinine Clr Calc Pharmacy 55.4; Estimated Glomerular Filt Rate > 60; Glucose Random 97 mg/dL (60-115); Lipase 56 U/L (8-78); Magnesium 2.3 mg/dL (1.6-2.6); Sodium 144 mmol/L (135-145); Total Protein 7.4 g/dL (6.5-8.0)
[2024-12-04 14:06] LABS: Lactic Acid 2.6 mmol/L (0.5-2.0); Troponin-I High Sensitivity < 2.7 ng/L (<3.5-17.0)
--- NOTE | 2024-12-04 14:30 | PC.NURSE ---
vss and up to date. nsr on the jersey knitter. 20gIV placed in the left forearm - labs obtained/sent to lab. pt on RA w/o difficulty - no sob/wob noted. respirations even/unlabored. plan of care ongoing. call byers placed within reach.
[2024-12-04 15:28] VITALS: BP 115/69; PULSE 75; RESP 20; TEMP 36.7; O2SAT 100
[2024-12-04 15:41] LABS: Reflex Lactate? Lactic Acid Added
[2024-12-04 16:27] LABS: ~Lactic Acid-LAB USE ONLY 2.6 mmol/L (0.5-2.0)
[2024-12-04] MEDS: Ketorolac Tromethamine 15 MG/ML VIAL IVPUSH (17:27)
[2024-12-04] MEDS: 0.9 % Sodium Chloride 1,000 ML 999 ML IV (17:28)
--- NOTE | 2024-12-04 17:31 | PC.NURSE ---
pt c/o 08/10 abd pain at this time - IF/medication administered per provider order. effectiveness pending. will repeat lactic s/p IVF infusion. pt otherwise remains in no apparent distress. no sob/wob noted. respirations even/unlabored. family bedside for support. plan of care ongoing. call byers placed within reach.
[2024-12-04 17:58] LABS: Reflex Lactate? 2 Y
[2024-12-04 18:25] VITALS: BP 99/69; PULSE 72; RESP 12; TEMP 36.6; O2SAT 100
--- NOTE | 2024-12-04 18:25 | PC.NURSE ---
delay in repeat lactic d/t IVF still infusing at this time. will obtain when IVF completely infuses.
[2024-12-04 20:11] LABS: ~Lactic Acid-LAB USE ONLY 1.8 mmol/L (0.5-2.0)
[2024-12-04 21:09] VITALS: BP 103/77; PULSE 77; RESP 17; TEMP 37; O2SAT 99
== END 2024-12-04 21:10 | disposition home or self-care (01) ==
PROVIDERS: Physician Assistant; Emergency Provider Emergency Medicine Emergency Medical Services; PCP Physician Assistant Medical
DX: L03.311 Cellulitis of abdominal wall (principal); R10.33 Periumbilical pain; R07.9 Chest pain, unspecified; K21.9 Gastro-esophageal reflux disease without esophagitis; I10 Essential (primary) hypertension; E78.5 Hyperlipidemia, unspecified
CPT/HCPCS: 36415; 80048; 80076; 81003; 83605; 83690; 83735; 84484; 85025; 85610; 87040; 93005; 96361; 96374; 99284; 99285; J1885

== ENCOUNTER → 2024-12-04 12:57 | Outpatient (BNV) | payer OTHER, SELFPAY | PROVIDERS: Emergency Provider Emergency Medicine Emergency Medical Services; PCP Physician Assistant Medical; Visit Provider Internal Medicine Cardiovascular Disease | DX: R07.9 Chest pain, unspecified (principal) | CPT/HCPCS: 93010 ==